=== PATIENT | male | born 1995 | race Caucasian/White ===

== ENCOUNTER 2022-11-12 09:12 | Emergency (ER) | payer OTHER, SELFPAY ==
--- NOTE | ~2022-11-12 | XR_ITS ---
EXAMINATION: XR chest 2V DATE: 11/12/2022 09:49 INDICATION: Shortness of breath. TECHNIQUE: Frontal and lateral views of the chest were obtained. COMPARISON: None. FINDINGS: There is no pneumonia, pleural effusion, or pneumothorax. The heart size is normal. IMPRESSION: 1. No acute cardiopulmonary disease. Reviewed, dictated and finalized at location D. NURSE
[2022-11-12 09:31] VITALS: BP 146/87; PULSE 91; RESP 20; TEMP 36.4; O2SAT 100
--- NOTE | 2022-11-12 09:49 | ECG_ITS ---
Measurements Intervals [place] Rate: 81 P: 69 [place]: 152 QRS: -14 QRSD: 110 T: 30 QT: 358 QTc: 416 Interpretive Statements SINUS RHYTHM INCOMPLETE RIGHT BUNDLE BRANCH BLOCK DELAYED PRECORDIAL R/S TRANSITION BASELINE ARTIFACT- I, II, III, AVR BORDERLINE ECG NO PREVIOUS ECG AVAILABLE FOR COMPARISON Electronically Signed On 11-12-2022 9:59:36 [employer] by Vipul Lechuga D.O.
--- NOTE | 2022-11-12 09:57 | ED.SOB ---
HPI - SOB/Dyspnea General Chief Complaint: Shortness of Breath/Dyspnea Stated Complaint: sob Time Seen by Provider: 11/12/22 09:39 Source: patient Mode of arrival: ambulatory Limitations: no limitations History of Present Illness HPI Narrative: Patient presents today complaining of intermittent shortness of breath x1 0.5 weeks. Patient states these shortness of breath episodes occur at night when he is trying to go to bed. States he gets a, ?anxious feeling, then I freak myself out. ? These episodes do not last long before resolving, usually after taking several deep breaths. Denies any history of diagnosed anxiety. Denies any known stressors in his life. Denies any recent illness, dizziness or lightheadedness, numbness or tingling, recent swelling, chest pain. Denies any family history of cardiac events or early . He denies any current symptoms. Related Data Home Medications Medication Instructions Recorded Confirmed No Home Medications 11/12/22 11/12/22 Allergies Allergy/AdvReac Type Severity Reaction Status Date / Time No Known Allergies Allergy Mild Verified 11/12/22 09:25 Review of Systems Review of Systems: CONSTITUTIONAL: Denies body aches, fever, chills, or sweats. EYES: Denies visual changes, redness, or discharge. ENT: Denies rhinorrhea, congestion, sore throat, or otalgia. CARDIOVASCULAR: Denies chest pain, palpitations, or edema. RESPIRATORY: Denies cough. + shortness of breath episodes GASTROINTESTINAL: Denies abdominal pain, nausea, vomiting, or diarrhea. GENITOURINARY: Denies dysuria or hematuria. SKIN: Denies rash, itching, or wounds. MUSCULOSKELETAL: Denies back pain, joint pain, or myalgia. NEUROLOGIC: Denies headache, numbness, tingling, or weakness. PSYCH: + anxiety PMFSH Comments At time of signature, I have reviewed and agree with nursing past medical, surgical, social and family history unless otherwise noted. Please see nursing chart for further information. There is no relevant family history pertinent to the presenting complaint Exam Narrative: GENERAL: Well-appearing, well-nourished, and in no acute distress. HEAD: Normocephalic, atraumatic. EYES: EOMI. No redness or drainage. Conjunctivae normal. ENT: Mucous membranes pink and moist. NECK: Normal AROM. Supple. No lymphadenopathy. CHEST: No respiratory distress. Clear to auscultation. HEART: Regular rate and rhythm. No murmur appreciated. Normal peripheral pulses. EXTREMITIES: Normal range of motion. No edema. 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 Foot push and pulls equal and strong against resistance. SKIN: Warm, dry, no rash. Capillary refill normal. Normal skin turgor. NEURO: No focal deficits. Alert and oriented x3. Gait steady. PSYCH: Normal affect. No signs of depression or anxiety. Course Course Level of Care: Express Care Visit Vital Signs Vital signs: Vital Signs Temperature 97.6 F 11/12/22 09:31 Pulse Rate 91 11/12/22 09:31 Respiratory Rate 20 11/12/22 09:31 Blood Pressure 146/87 H 11/12/22 09:31 Pulse Oximetry 100 11/12/22 09:31 Oxygen Delivery Room Air 11/12/22 09:31 Temperature 97.6 F 11/12/22 09:31 Pulse Rate 91 11/12/22 09:31 Respiratory Rate 20 11/12/22 09:31 Blood Pressure 146/87 H 11/12/22 09:31 Pulse Oximetry 100 11/12/22 09:31 Oxygen Delivery Room Air 11/12/22 09:31 Reviewed. Pt has been instructed to follow up with his PCP regarding his elevated blood pressure today. MDM - SOB/Dyspnea MDM Narrative Medical decision making narrative: Symptoms and exam consistent with anxiety. Patient not currently symptomatic. Instructed to follow-up with PCP. Anticipatory guidance given. Differential Diagnosis Differential diagnosis: Likely other (Pulmonary embolism, URI, anxiety, pneumonia, arrhythmia) Imaging Data Radiologist's impression: ITS Impressions Chest X-Ray 11/12/22 10:01 IMPRESSION: 1. No acute cardiopulmonary disease. ECG
== END 2022-11-12 10:16 | disposition home or self-care (01) ==
PROVIDERS: Emergency Provider Nurse Practitioner; PCP Emergency Medicine
DX: F41.9 Anxiety disorder, unspecified (principal)
CPT/HCPCS: 71046; 93005; 99213; G0463

== ENCOUNTER 2023-05-27 10:50 | Emergency (ER) | payer OTHER, SELFPAY ==
--- NOTE | 2023-05-27 11:02 | ED.URI ---
HPI - URI/Sore Throat General Chief Complaint: Upper Respiratory Infection Stated Complaint: Body Aches Time Seen by Provider: 05/27/23 11:02 Source: patient Mode of arrival: ambulatory Limitations: no limitations History of Present Illness HPI Narrative: 28-year-old male presents with complaint of sore throat, fatigue, fever, body aches, headache for 3 days. Reports temperature 100? 2-103 F. Taking Tylenol to treat symptoms. Denies nausea vomiting. All systems reviewed and negative except as noted above. Related Data Allergies Allergy/AdvReac Type Severity Reaction Status Date / Time No Known Allergies Allergy Mild Verified 05/27/23 10:58 Review of Systems Review of Systems: CONSTITUTIONAL: Reports fever, chills, or sweats. EYES: Denies visual changes, redness, or discharge. ENT: Denies rhinorrhea, congestion. Reports sore throat. Denies otalgia. CARDIOVASCULAR: Denies chest pain, palpitations, or edema. RESPIRATORY: Denies cough or dyspnea. GASTROINTESTINAL: Denies abdominal pain, nausea, vomiting, or diarrhea. GENITOURINARY: Denies dysuria or hematuria. SKIN: Denies rash or itching. MUSCULOSKELETAL: Denies back pain, joint pain. Reports myalgia. NEUROLOGIC: Denies headache, numbness, or weakness. PSYCHIATRIC: Denies anxiety or depression. All other systems reviewed are negative, except as documented in HPI. PMFSH Comments At time of signature, agree with nursing past medical, surgical, social and family history. There is no relevant family history pertinent to the presenting complaint. Exam Narrative: GENERAL: This is a well-nourished, well-developed patient, patient ill-appearing but no acute distress. HEAD: normocephalic, atraumatic. EYES: PERRL. Sclera clear/white. Vision is grossly intact. EARS: External ears normal, auditory canals clear and without drainage, TMs normal without perforation. Hearing grossly intact. NOSE: External nose normal with no obvious nasal discharge, nares without redness, no rhinorrhea. THROAT: Mucous membranes moist, Erythema to posterior pharynx, tonsils 1+ bilaterally with exudates. NECK: Neck supple, tender Enlarged anterior cervicallymphadenopathy. No masses or thyromegaly. CARDIOVASCULAR: Regular rate and rhythm without murmurs, gallops, or rubs. RESPIRATORY: Clear to auscultation. Breath sounds equal bilaterally. No wheezes, rales, or rhonchi. SKIN: warm, Dry, intact with no suspicious lesions or rash, good texture and turgor. NEURO: awake, alert, and oriented to person, place and time. There were no obvious focal neurologic abnormalities. EXTREMITIES: No joint tenderness, effusion, or edema noted. Course Course Level of Care: Express Care Visit Vital Signs Vital signs: Vital Signs Temperature 36.4 C 05/27/23 11:11 Pulse Rate 102 H 05/27/23 11:11 Respiratory Rate 18 05/27/23 11:11 Blood Pressure 134/87 05/27/23 11:11 Pulse Oximetry 100 05/27/23 11:11 Oxygen Delivery Room Air 05/27/23 11:11 Temperature 36.4 C 05/27/23 11:11 Pulse Rate 102 H 05/27/23 11:11 Respiratory Rate 18 05/27/23 11:11 Blood Pressure 134/87 05/27/23 11:11 Pulse Oximetry 100 05/27/23 11:11 Oxygen Delivery Room Air 05/27/23 11:11 reviewed MDM - URI/Sore Throat MDM Narrative Medical decision making narrative: Patient is aware of diagnosis, understands and agrees to treatment plan. Anticipatory guidance given. Patient agrees to follow-up as directed and is aware of reasons to seek care at the emergency department. Portions of this record may have been created with voice recognition software Differential Diagnosis Differential diagnosis: Likely pharyngitis Discharge Plan Discharge Clinical Impression: Strep throat Patient Disposition: Home, Self-Care Condition: Stable Instructions: Antibiotic Form, Strep Throat (ED) Additional Instructions: your strep test was positive today. Your COVID and influenza test were neg
[2023-05-27 11:11] VITALS: BP 134/87; PULSE 102; RESP 18; TEMP 36.4; O2SAT 100
== END 2023-05-27 11:48 | disposition home or self-care (01) ==
PROVIDERS: Emergency Provider Nurse Practitioner Family; PCP Emergency Medicine
DX: J02.0 Streptococcal pharyngitis (principal); Z20.822 Contact with and (suspected) exposure to COVID-19
CPT/HCPCS: 87426; 87804; 87880; 99213; C9803; G0463

== ENCOUNTER 2024-06-09 09:54 | Outpatient (CLI) | payer OTHER, SELFPAY ==
--- NOTE | 2024-06-09 10:05 | EST_ITS ---
Patient Info Name: Matthew Johnson Age: 29 years : 1995 Gender: Male Ht: 72 in Wt: 242 lbs BSA: 2.39 m2 HR: 70 bpm BP: 139 / 82 mmHg Heart Rhythm: Sinus Rhythm Exam Date: 06/09/2024 10:17 AM Exam Location: [facility] Patient Status: Outpatient Admit Date: 06/09/2024 Staff Ordering Physician: Vipul Lechuga DO Attending Provider: Vipul Lechuga DO Exercise Technologist: Erica Galvan CT Exercise Physician: Vipul Lechuga DO Exam Type: CA stress test treadmill Study Info Indications R07.89 - Other chest pain A treadmill exercise stress test was performed. Summary 1. 1. Negative Sanjeev exercise stress test for ischemic ST changes by ECG criteria. 2. 2. Good functional capacity, achieving 12 METs of workload. 3. 3. Appropriate HR response to exercise. 4. 4. Appropriate HR recovery at 1 minute post exercise. 5. 5. No imaging with stress testing. 6. 6. Patient informed of the above results. Protocol: Sanjeev Stress ECG Details Stage: REST Duration (min): 2 min : 18 sec Speed (mph): 0.0 Grade (%): 0 HR (bpm): 81 SBP (mmHg): 139 DBP (mmHg): 82 METS: --- Stage: REST Duration (min): 6 min : 26 sec Speed (mph): 0.0 Grade (%): 0 HR (bpm): 83 SBP (mmHg): 139 DBP (mmHg): 82 METS: --- Stage: STAGE 1 Duration (min): 1 min : 0 sec Speed (mph): 1.7 Grade (%): 10 HR (bpm): 100 SBP (mmHg): 139 DBP (mmHg): 82 METS: --- Stage: STAGE 1 Duration (min): 2 min : 0 sec Speed (mph): 1.7 Grade (%): 10 HR (bpm): 110 SBP (mmHg): 139 DBP (mmHg): 82 METS: --- Stage: STAGE 1 Duration (min): 3 min : 0 sec Speed (mph): 1.7 Grade (%): 10 HR (bpm): 109 SBP (mmHg): 161 DBP (mmHg): 87 METS: --- Stage: STAGE 2 Duration (min): 1 min : 0 sec Speed (mph): 2.5 Grade (%): 12 HR (bpm): 120 SBP (mmHg): 161 DBP (mmHg): 87 METS: --- Stage: STAGE 2 Duration (min): 2 min : 0 sec Speed (mph): 2.5 Grade (%): 12 HR (bpm): 127 SBP (mmHg): 176 DBP (mmHg): 75 METS: --- Stage: STAGE 2 Duration (min): 3 min : 0 sec Speed (mph): 2.5 Grade (%): 12 HR (bpm): 129 SBP (mmHg): 176 DBP (mmHg): 75 METS: --- Stage: STAGE 3 Duration (min): 1 min : 0 sec Speed (mph): 3.4 Grade (%): 14 HR (bpm): 142 SBP (mmHg): 186 DBP (mmHg): 77 METS: --- Stage: STAGE 3 Duration (min): 2 min : 0 sec Speed (mph): 3.4 Grade (%): 14 HR (bpm): 150 SBP (mmHg): 186 DBP (mmHg): 77 METS: --- Stage: STAGE 3 Duration (min): 3 min : 0 sec Speed (mph): 3.4 Grade (%): 14 HR (bpm): 157 SBP (mmHg): 194 DBP (mmHg): 83 METS: --- Stage: STAGE 4 Duration (min): 1 min : 0 sec Speed (mph): 4.2 Grade (%): 16 HR (bpm): 179 SBP (mmHg): 194 DBP (mmHg): 83 METS: --- Stage: STAGE 4 Duration (min): 1 min : 0 sec Speed (mph): 4.2 Grade (%): 16 HR (bpm): 179 SBP (mmHg): 194 DBP (mmHg): 83 METS: ---
== END 2024-06-09 09:55 | disposition home or self-care (01) ==
PROVIDERS: PCP Nurse Practitioner Family; Visit Provider Internal Medicine Cardiovascular Disease
DX: R00.2 Palpitations (principal)
CPT/HCPCS: 93017